=== PATIENT | male | born 1995 | race African-American/Black ===

== ENCOUNTER 2016-11-27 23:06 | Emergency (ER) | payer OTHER ==
--- NOTE | ~2016-11-27 | CR229 ---
[facility]. [facility] A Service of [facility] & [facility] RADIOLOGY TEXT RESULTS PATIENT: ROSEMARIE MIMS JR LOCATION: SED : 95 UNIT #: [id number] AGE: [address]: RANJEET MOBLEY SEX: M ORDER DR: [id number] [place] [id number] E MR#: [id number] Acc #: [id number] NAME: ROSEMARIE MIMS JR : 1995 SEX: M STUDY DATE/TIME: 11/27/2016 23:50 UNIT: SED ROOM: STUDY DESCRIPTION: CR Shoulder Min 2 View Lt Attending Physician: Ranjeet Mobley Ordering Physician: Physician Non-Staff Primary Care Physician: No Primary Care Physician MEDICAL IMAGING REPORT This report is preliminary unless electronic signature is present. EXAM Left shoulder series INDICATIONS Left shoulder pain since an injury last week. PROCEDURE Three views left shoulder. COMPARISON STUDIES None FINDINGS No acute fracture. No dislocation. IMPRESSION No acute findings Dictated by... Laith Chi M.D. THIS IS AN ELECTRONICALLY VERIFIED REPORT Laith Chi M.D. at 11/28/2016 9:53 PM NIMA/jamin TD: 11/28/2016 11:54 JOB #: [id number] MEDICAL IMAGING REPORT Page 1 of 1
[2016-11-27] MEDS ORDERED: NO MEDICATIONS (23:29)
== END 2016-11-28 01:11 | disposition home or self-care (01) ==
LOC: SED 23:06
DX: S46.912A Strain of unspecified muscle, fascia and tendon at shoulder and upper arm level, left arm, initial encounter (principal); F17.210 Nicotine dependence, cigarettes, uncomplicated; X50.0XXA Overexertion from strenuous movement or load, initial encounter; Y92.69 Other specified industrial and construction area as the place of occurrence of the external cause; Y93.89 Activity, other specified; Y99.0 Civilian activity done for income or pay
CPT/HCPCS: 73030; 99283; J1885